=== PATIENT | female | born 1990 | race American Indian/Alaskan Native ===

== ENCOUNTER 2016-07-15 14:17 | Inpatient (IN) | payer MEDICAID ==
[2016-07-15] MEDS ORDERED: ePHEDrine SULFATE IV PRN ×2 (15:13→17:44)
[2016-07-15] MEDS ORDERED: BRETHINE SUB-Q PRN (15:13)
[2016-07-15] MEDS ORDERED: MINERAL OIL PO PRN (15:13)
[2016-07-15] MEDS ORDERED: ZOFRAN IV PRN (15:13)
[2016-07-15] MEDS ORDERED: SUBLIMAZE IV PRN (15:13)
[2016-07-15] MEDS ORDERED: PITOCin/NS 30 UNIT/500ML 30 UNIT/500 ML BAG IV SCH (16:00)
[2016-07-15] MEDS: LACTATED RINGERS 1,000 ML IV SCH ×3 (16:20→17:20)
[2016-07-15] MEDS ORDERED: ePHEDrine SULFATE ONE (16:59)
[2016-07-15] MEDS ORDERED: XYLOCAINE 2% INFILTRATI ONE (17:00)
[2016-07-15] MEDS ORDERED: PITOCin/NS 20 UNIT/1000ML DRIP 20 UNIT/1,000 ML BAG IV SCH (17:00)
--- NOTE | 2016-07-15 17:02 | History and Physical Report ---
History of Present Illness Date of examination: 07/15/16 (sent from office 6cm) Date of admission: 07/15/16 14:17 Chief complaint: labor History of present illness: EDC Confirmation: 07/24/2016 Gestational Age: 31 1/7 weeks Past History : 5 Term Births: 3 Living Children: 3 Para: 3 Aborta: 1 Elect. Ab: 0 Spont. Ab: 1 # 1 Delivery date: 11/11/2008 Weeks Gestation: 37 Delivery type: Delivery location: [place] Infant Sex: Female weight: 7-14 Name: Brendan # 2 Delivery date: 04/12/2011 Weeks Gestation: 37 Delivery type: Delivery location: [place] Sex: Female weight: 7-14 Name: Briana # 3 Delivery date: 10/2014 Weeks Gestation: term labor: no Delivery type: Delivery location: [facility] – [place] Sex: Male weight: 9#3 # 4 Delivery date: 05/2015 Delivery type: SAB Comments: SAB - did no seek medical care Past Medical History: Reviewed history from 09/05/2014 and no changes required: none Past Surgical History: Reviewed history from 09/05/2014 and no changes required: none Past Medical History Abnormal PAP: negative FLOYD Exposure: negative Infertility: negative Uterine Anomaly: negative Uterine Surgery (not C/S): negative Other Gynecologic Problems: negative Social Hx: Patient is single Smoking History: Patient has never smoked. Infection History Hx of STD: none HIV Risk Eval: no Hepatitis B Risk Eval: low risk Personal hx. of genital herpes: no Partner hx. of genital herpes: no Rash, Viral, or Febrile illness since last LMP? no Varicella/Chicken Pox Status: Unknown TB Risk: no Genetic History Congenital Heart Defect: Mom: no Dad: no Chente Disease: Mom: no Dad: no Thalassemia Mom: no Dad: no Neural Tube Defect Mom: no Dad: no Down's Syndrome Mom: no Dad: no Silas-Sachs Mom: no Dad: no Sickle Cell Disease/Trait Mom: no Dad: no Hemophilia Mom: no Dad: no Muscular Dystrophy Mom: no Dad: no Cystic Fibrosis Mom: no Dad: no David Chorea Mom: no Dad: no Mental Retardation Mom: no Dad: no Fragile X Mom: no Dad: no Other Genetic/Chromosomal Disorder Mom: no Dad: no Child w/other defect Mom: no Dad: no Enviromental Exposures Xray Exposure: no Medication, drug, or alcohol use since LMP: no Chemical/Other Exposure: no Exposure to Cat Liter: no Hx of Parvovirus (Fifth Disease): no Occupational Exposure to Children: none Current Allergies (reviewed today): No known allergies Laboratory Results Date/Time Collected: 05/23/2016 Routine Urinalysis Color: yellow Appearance: cloudy Leukocytes: negative Nitrite: negative Urobilinogen: negative Protein: negative Blood: negative Ketone: negative Bilirubin: negative Glucose: negative Urine HCG: positive Review of Systems General Denies fever, chills, sweats, anorexia, fatigue, weakness, malaise, weight loss and sleep disorder. Denies nausea, vomiting, headache, swelling of legs, abdominal pain, vaginal discharge, vaginal bleeding and contractions. Denies vaginal discharge, incontinence, dysuria, hematuria, urinary frequency, amenorrhea, menorrhagia, abnormal vaginal bleeding, pelvic pain, genital sores, decreased libido, painful periods, painful sex, urinary urgency, hot flashes, vaginal dryness, vaginal itching and vaginal odor. CV Denies chest pains, palpitations, syncope, dyspnea on exertion, orthopnea, PND and peripheral edema. Resp Denies cough, dyspnea at rest, excessive sputum, hemoptysis, wheezing and pleurisy. GI Denies nausea, vomiting, diarrhea, constipation, change in bowel habits, abdominal pain, melena, hematochezia, jaundice, gas/bloating, indigestion/ heartburn, dysphagia and odynophagia. Endo Denies cold intolerance, heat intolerance, polydipsia, polyphagia, polyuria and unusual weight change. Breast Denies left breast lump, right breast lump, nipple discharge, bloody discharge from nipple, breast pain, abnormal mammogram and breast enlargement. MS Denies back pain, joint pain, joint swelling, muscle cramps, muscle weakness, stiffness, arthritis, sciatica, restless legs, leg pain at night and leg pain with exertion. Derm Denies rash, itching, dryness and suspicious lesions. Neuro Denies paralysis, paresthesias, headache, seizures, tremors, vertigo, transient blindness, frequent falls, frequent headaches and difficulty walking. Psych Denies depression, anxiety, irritability and mood swings. Eyes Denies blurring, diplopia, irritation, discharge, vision loss, eye pain and photophobia. ENT Denies earache, ear discharge, tinnitus, decreased hearing, nasal congestion, nosebleeds, sore throat and hoarseness. Allergy Denies urticaria, allergic rash, hay fever and recurrent infections. Heme Denies abnormal bruising, bleeding and enlarged lymph nodes. 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 Vulva/Vagina: No lesions, normal BUS, normal rugae Cervix: No lesions; no cervical motion tenderness Uterus: normal size and position, midline, mobile Fundal Ht: 33weeks size: AGA FHT: 138 activity: + Adnexae: no masses or tenderness Rectovaginal: no masses or tenderness Past History - Obstetrical History Expected Date of Delivery: 07/24/16 Actual Gestation: 38 Week(s) 5 Day(s) : 5 Para: 3 Hx # Term Pregnancies: 3 Spontaneous Abortions: 1 Number of Living Children: 3 Medications and Allergies Allergies Allergy/AdvReac Type Severity Reaction Status Date / Time No Known Allergies Allergy Unverified 07/15/16 16:21 Home Medications Medication Instructions Recorded Confirmed Last Taken Type No Known Home Medications [No 07/15/16 07/15/16 Unknown History Reported Home Medications] Active Meds: Active Medications Fentanyl (Sublimaze) 100 mcg IV Q2H PRN PRN Reason: Labor Pain Lactated Ringer's (Lactated Ringers) 1,000 mls @ 125 mls/hr IV DIRECT DARLENE Oxytocin/Sodium Chloride (Pitocin/Ns 20 Unit/1000ml Drip) 20 unit in 1,000 mls @ 125 mls/hr IV DIRECT DARLENE Oxytocin/Sodium Chloride (Pitocin/Ns 30 Unit/500ml) 30 unit in 500 mls @ 0 mls/ hr IV Q30MIN DARLENE PRN Reason: Protocol Lidocaine (Xylocaine 2%) 20 ml INFILTRATI ONCE ONE Stop: 07/15/16 17:01 Mineral Oil (Mineral Oil) 30 ml PO QHS PRN PRN Reason: Constipation Ondansetron HCl (Zofran) 4 mg IV Q8H PRN PRN Reason: Nausea And Vomiting - Vital Signs Vital signs: Vital Signs Pulse BP 79 116/68 07/15/16 15:30 07/15/16 15:30 Temp Pulse Resp BP Pulse Ox 97.6 F 75 18 111/67 100 07/15/16 15:59 07/15/16 16:01 07/15/16 15:59 07/15/16 16:01 07/15/16 15:59 - Physical Exam Breasts: Positive: deferred Cardiovascular: Regular rate, Normal S1, Normal S2 Lungs: Positive: Clear to auscultation, Normal air movement Abdomen: Positive: normal appearance, soft, normal bowel sounds. Negative: distention, tenderness Genitourinary (Female): Positive: normal external genitalia, normal perenium Vulva: both: normal Vagina: Positive: normal moisture. Negative: discharge Cervix: Negative: lesion, discharge Uterus: Positive: normal size, normal contour Adnexa: both: normal Anus/Rectum: Positive: normal perianal skin, heme negative. Negative: rectal mass, hemorrhoids Extremities: Deep Tendon Reflex Grade: Normal +2 - Obstetrical FHR: category 1 Uterine Contraction Monitor Mode: External Cervical Dilatation: 6.5 Cervical Effacement Percentage: 50 station: -2 Uterine Contraction Pattern: Irregular Uterine Contraction Intensity: Moderate Results All other labs normal. Laboratory Data-Patient Name: TERI REED Test Date Result Blood Type 05/30/2016 AB Rh 05/30/2016 Positive Antibody Screen immune Rubella 05/30/2016 Serology (RPR) 06/25/2016 HBsAg 05/30/2016 Negative Hemoglobin 05/30/2016 9.2 Hematocrit 05/30/2016 30.3 Platelets 05/30/2016 273 [id number] Chlamydia DNA 06/25/2016 Negative GC DNA/Culture 06/25/2016 Urine Culture 05/30/2016 Final report Group B Strep cult negative PAP 09/05/2014 Normal HIV 06/25/2016 AFP/Quad Screen Glucola Test 3hr GTT (Fasting) 10/06/2014 59 1 hr 10/06/2014 79 2 hr 10/06/2014 116 3 hr 10/06/2014 104 OPTIONAL LABS-Patient Name:TERI REED Test Date Result Varicella Ab Sickle Cell 05/30/2016 Negative PPD Fibronectin Cystic Fibrosis Parvovirus TSH Free T4 Hepatitis C ALT AST Uric Acid Creatinine 24 hr Urine Protein NASH Assessment and Plan limited PNC SVE 6cm in office today GBS negative To [facility] in labor Orders in EMR
[2016-07-15 17:10] LABS: Hematocrit 28.1 % (30.3-42.9); Hemoglobin 8.6 gm/dl (10.1-14.3); Mean Corpuscular HGB Conc 31 % (30-34); Mean Corpuscular Volume 76 fl (79-97); Platelet Count 236 K/mm3 (140-440); Red Blood Count 3.72 M/mm3 (3.65-5.03); Red Cell Distribution Width 16.8 % (13.2-15.2); White Blood Count 8.3 K/mm3 (4.5-11.0)
[2016-07-15 17:11] LABS: Mean Corpuscular Hemoglobin 23 pg (28-32)
--- NOTE | 2016-07-15 17:29 | Progress Note ---
Assessment and Plan re-eval as needed Anticipate delivery Subjective - Subjective Date of service: 07/15/16 (epidural placed) Interval history: EDC Confirmation: 07/24/2016 Gestational Age: 31 1/7 weeks Past History : 5 Term Births: 3 Living Children: 3 Para: 3 Aborta: 1 Elect. Ab: 0 Spont. Ab: 1 # 1 Delivery date: 11/11/2008 Weeks Gestation: 37 Delivery type: Delivery location: [place] Sex: Female weight: 7-14 Name: Brendan # 2 Delivery date: 04/12/2011 Weeks Gestation: 37 Delivery type: Delivery location: [place] Infant Sex: Female weight: 7-14 Name: Briana # 3 Delivery date: 10/2014 Weeks Gestation: term labor: no Delivery type: Delivery location: [facility] [place] Infant Sex: Male weight: 9#3 # 4 Delivery date: 05/2015 Delivery type: SAB Comments: SAB - did no seek medical care Past Medical History: Reviewed history from 09/05/2014 and no changes required: none Past Surgical History: Reviewed history from 09/05/2014 and no changes required: none Past Medical History Abnormal PAP: negative FLOYD Exposure: negative Infertility: negative Uterine Anomaly: negative Uterine Surgery (not C/S): negative Other Gynecologic Problems: negative Social Hx: Patient is single Smoking History: Patient has never smoked. Infection History Hx of STD: none HIV Risk Eval: no Hepatitis B Risk Eval: low risk Personal hx. of genital herpes: no Partner hx. of genital herpes: no Rash, Viral, or Febrile illness since last LMP? no Varicella/Chicken Pox Status: Unknown TB Risk: no Genetic History Congenital Heart Defect: Mom: no Dad: no Chente Disease: Mom: no Dad: no Thalassemia Mom: no Dad: no Neural Tube Defect Mom: no Dad: no Down's Syndrome Mom: no Dad: no Silas-Sachs Mom: no Dad: no Sickle Cell Disease/Trait Mom: no Dad: no Hemophilia Mom: no Dad: no Muscular Dystrophy Mom: no Dad: no Cystic Fibrosis Mom: no Dad: no David Chorea Mom: no Dad: no Mental Retardation Mom: no Dad: no Fragile X Mom: no Dad: no Other Genetic/Chromosomal Disorder Mom: no Dad: no Child w/other defect Mom: no Dad: no Enviromental Exposures Xray Exposure: no Medication, drug, or alcohol use since LMP: no Chemical/Other Exposure: no Exposure to Cat Liter: no Hx of Parvovirus (Fifth Disease): no Occupational Exposure to Children: none Current Allergies (reviewed today): No known allergies Laboratory Results Date/Time Collected: 05/23/2016 Routine Urinalysis Color: yellow Appearance: cloudy Leukocytes: negative Nitrite: negative Urobilinogen: negative Protein: negative Blood: negative Ketone: negative Bilirubin: negative Glucose: negative Urine HCG: positive Review of Systems General Denies fever, chills, sweats, anorexia, fatigue, weakness, malaise, weight loss and sleep disorder. Denies nausea, vomiting, headache, swelling of legs, abdominal pain, vaginal discharge, vaginal bleeding and contractions. Denies vaginal discharge, incontinence, dysuria, hematuria, urinary frequency, amenorrhea, menorrhagia, abnormal vaginal bleeding, pelvic pain, genital sores, decreased libido, painful periods, painful sex, urinary urgency, hot flashes, vaginal dryness, vaginal itching and vaginal odor. CV Denies chest pains, palpitations, syncope, dyspnea on exertion, orthopnea, PND and peripheral edema. Resp Denies cough, dyspnea at rest, excessive sputum, hemoptysis, wheezing and pleurisy. GI Denies nausea, vomiting, diarrhea, constipation, change in bowel habits, abdominal pain, melena, hematochezia, jaundice, gas/bloating, indigestion/ heartburn, dysphagia and odynophagia. Endo Denies cold intolerance, heat intolerance, polydipsia, polyphagia, polyuria and unusual weight change. Breast Denies left breast lump, right breast lump, nipple discharge, bloody discharge from nipple, breast pain, abnormal mammogram and breast enlargement. MS Denies back pain, joint pain, joint swelling, muscle cramps, muscle weakness, stiffness, arthritis, sciatica, restless legs, leg pain at night and leg pain with exertion. Derm Denies rash, itching, dryness and suspicious lesions. Neuro Denies paralysis, paresthesias, headache, seizures, tremors, vertigo, transient blindness, frequent falls, frequent headaches and difficulty walking. Psych Denies depression, anxiety, irritability and mood swings. Eyes Denies blurring, diplopia, irritation, discharge, vision loss, eye pain and photophobia. ENT Denies earache, ear discharge, tinnitus, decreased hearing, nasal congestion, nosebleeds, sore throat and hoarseness. Allergy Denies urticaria, allergic rash, hay fever and recurrent infections. Heme Denies abnormal bruising, bleeding and enlarged lymph nodes. 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 Vulva/Vagina: No lesions, normal BUS, normal rugae Cervix: No lesions; no cervical motion tenderness Uterus: normal size and position, midline, mobile Fundal Ht: 33weeks size: AGA FHT: 138 activity: + Adnexae: no masses or tenderness Rectovaginal: no masses or tenderness Patient reports: movement normal Objective - Vital Signs Vital Signs: Vital Signs - 12hr 07/15/16 07/15/16 07/15/16 15:30 15:59 16:01 Temperature 97.6 F Pulse Rate 79 75 Pulse Rate [ 62 Radial] Respiratory 18 Rate Blood Pressure 116/68 111/67 Blood Pressure 118/68 [Right Arm] O2 Sat by Pulse 100 Oximetry 07/15/16 07/15/16 07/15/16 17:19 17:21 17:23 Temperature Pulse Rate 80 76 76 Pulse Rate [ Radial] Respiratory Rate Blood Pressure 117/79 118/75 118/73 Blood Pressure [Right Arm] O2 Sat by Pulse Oximetry 07/15/16 07/15/16 17:25 17:27 Temperature Pulse Rate 81 76 Pulse Rate [ Radial] Respiratory Rate Blood Pressure 116/72 115/71 Blood Pressure [Right Arm] O2 Sat by Pulse Oximetry - Exam Breasts: deferred Cardiovascular: Normal S1 Lungs: Normal air movement Abdomen: Present: normal appearance, soft. Absent: distention, tenderness Uterus: Present: normal FHR: auscultation normal, category 1 Uterine Contraction Monitor Mode: Internal Cervical Dilatation: 8 (ISE/IUPC) Cervical Effacement Percentage: 70 (minimal fluid) station: -1 Uterine Contraction Pattern: Irregular Uterine Tone Measurement Phase: Resting Uterine Contraction Intensity: Moderate Extremities: normal Deep Tendon Reflex Grade: Normal +2 - Labs Labs: Abnormal Labs 07/15/16 15:40 Hgb 8.6 L Hct 28.1 L MCV 76 L MCH 23 L RDW 16.8 H Laboratory Results - last 24 hr 07/15/16 15:40 WBC 8.3 RBC 3.72 Hgb 8.6 L Hct 28.1 L MCV 76 L MCH 23 L MCHC 31 RDW 16.8 H Plt Count 236
[2016-07-15] MEDS ORDERED: fentaNYL-BUPIV 2 MCG/ML-0.125% 200 MCG/100 ML BAG EPIDURAL ONE (17:36)
[2016-07-15] MEDS ORDERED: NARCAN 2 MG/2 ML IV PRN (17:44)
--- NOTE | 2016-07-15 17:44 | Anesthesia Consultation ---
Anesthesia Consult and Med Hx Date of service: 07/15/16 - Airway Anesthetic Teeth Evaluation: Good ROM Head & Neck: Adequate Mental/Hyoid Distance: Adequate Intubation Access Assessment: Probably Good - Pre-Operative Health Status ASA Pre-Surgery Classification: ASA2, Emergency Proposed Anesthetic Plan: Epidural, Spinal - Pulmonary Hx Asthma: No Hx Pneumonia: No - Cardiovascular System Hx Hypertension: No - Central Nervous System Hx Seizures: No Hx Psychiatric Problems: No - Endocrine Hx Renal Disease: No Hx Hypothyroidism: No Hx Hyperthyroidism: No - Hematic Hx Anemia: No Hx Sickle Cell Disease: No - Other Systems Hx Alcohol Use: No
[2016-07-15] MEDS ORDERED: fentaNYL-BUPIV 2 MCG/ML-0.125% 200 MCG/100 ML BAG EPIDURAL SCH (18:00)
[2016-07-15] MEDS ORDERED: XYLOCAINE MPF 2% ONE (19:23)
[2016-07-15] MEDS ORDERED: TYLENOL PO PRN (20:20)
[2016-07-15] MEDS ORDERED: TUCKS PAD TP PRN (20:20)
[2016-07-15] MEDS ORDERED: PHENERGAN PO PRN (20:20)
[2016-07-15] MEDS ORDERED: DULCOLAX PR PRN (20:20)
[2016-07-15] MEDS ORDERED: NORCO 5/325 PO PRN (20:20)
[2016-07-15] MEDS ORDERED: MILK OF MAGNESIA PO PRN (20:20)
[2016-07-15] MEDS ORDERED: LANSINOH TP PRN (20:20)
[2016-07-15] MEDS ORDERED: DERMOPLAST TP PRN (20:20)
[2016-07-15] MEDS ORDERED: BENADRYL PO PRN (20:20)
--- NOTE | 2016-07-15 20:26 | Procedure Note ---
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 Placenta and membrane delivered complete and intact, 3 vessel cord. Pit IVFs 8/9, EBL 300, Wgt 7-11 Mom and baby remain LDR stable. - Infant A at 1 minute: 8 at 5 minutes: 9 Gender: Female (wgt 7-11)
[2016-07-15] MEDS: MOTRIN PO SCH (20:50)
[2016-07-15] MEDS ORDERED: SODIUM CHLORIDE FLUSH SYRINGE 10 ML IV PRN (21:00)
[2016-07-15] MEDS ORDERED: MOTRIN PO SCH (21:00)
[2016-07-16] MEDS: MOTRIN PO SCH ×3 (05:40→21:46)
[2016-07-16 06:25] LABS: Hematocrit 25.5 % (30.3-42.9); Hemoglobin 7.9 gm/dl (10.1-14.3)
--- NOTE | 2016-07-16 08:22 | Progress Note ---
Assessment and Plan patient doing well, no complaints. polly smith, VSSAF, H&H 7.9/25.5 (post delivery H&H down slightly from admission of 8.6/28.1 ) preexisting anemia, will supplement iron. patient is well. Patient requesting to stay until tomorrow morning. Will place d/c order on chart for tomorrow. - Patient Problems (1) Spontaneous vaginal delivery Onset Date: 07/15/16 Current Visit: Yes Status: Acute (2) Iron deficiency anemia Current Visit: Yes Status: Acute Qualifiers: Iron deficiency anemia type: inadequate dietary iron intake Qualified Code( s): D50.8 - Other iron deficiency anemias Plan to address problem: asymptomatic, will rx iron Subjective - Subjective Date of service: 07/16/16 Principal diagnosis: day #1 s/p Patient reports: appetite normal, voiding normally, pain well controlled, ambulating normally : doing well, nursing well Objective - Vital Signs Latest vital signs: Vital Signs Temp Pulse Pulse Resp BP BP Pulse Ox 07/16/16 05:05 97.5 F L 67 18 115/65 07/16/16 00:00 98.2 F 81 20 120/66 07/15/16 21:15 97.9 F 76 18 126/70 07/15/16 20:51 77 129/78 07/15/16 20:36 77 130/61 07/15/16 20:20 78 127/80 07/15/16 20:05 87 126/72 07/15/16 19:51 82 118/69 07/15/16 19:34 83 121/57 07/15/16 19:04 80 120/70 07/15/16 19:01 97.5 F L 196 H 226/136 07/15/16 17:44 18 07/15/16 17:33 94 H 108/58 07/15/16 17:31 84 107/59 07/15/16 17:29 73 111/64 07/15/16 17:27 76 115/71 07/15/16 17:25 81 116/72 07/15/16 17:23 76 118/73 07/15/16 17:21 76 118/75 07/15/16 17:19 80 117/79 07/15/16 16:01 75 111/67 07/15/16 15:59 97.6 F 62 18 118/68 100 07/15/16 15:30 79 116/68 Intake and Output 07/15/16 07/16/16 07/16/16 22:59 06:59 14:59 Intake Total 1570 1275 Output Total 900 2100 Balance 670 -825 Intake: IV 1570 435 Lactated Ringers 1,000 ml 500 @ 125 mls/hr IV DIRECT DARLENE Rx#:[id number] PITOCin/NS 20 UNIT/1000ML 570 435 DRIP 20 unit In 1,000 ml @ 125 mls/hr IV DIRECT DARLENE Rx#:[id number] PITOCin/NS 30 UNIT/500ML 500 30 unit In 500 ml @ 4 mls /hr IV Q30MIN DARLENE Rx#: [id number] Intake, Free Water 840 Output: Urine 900 2100 Void 900 2100 Other: Total, Output Amount 900 700 # Voids Void 1 Weight 95.25 kg Estimated Blood Loss 300 - Exam Breasts: Present: normal, Cardiovascular: Present: Regular rate Lungs: Present: Clear to auscultation, Normal air movement Abdomen: Present: normal appearance, soft Vulva: both: normal Uterus: Present: normal, firm, fundal height at umbilicus Extremities: Present: normal - Labs Labs: Abnormal lab results 07/15/16 07/16/16 Range/Units 15:40 06:11 Hgb 8.6 L 7.9 L (10.1-14.3) gm/dl Hct 28.1 L 25.5 L (30.3-42.9) % MCV 76 L (79-97) fl MCH 23 L (28-32) pg RDW 16.8 H (13.2-15.2) %
--- NOTE | 2016-07-16 08:24 | Discharge Summary ---
Providers - Providers Date of Admission: 07/15/16 14:17 Date of discharge: 07/17/16 Attending physician: ALESSANDRO LEDBETTER Primary care physician: ALESSANDRO LEDBETTER Hospitalization Reason for admission: active labor Delivery: Episiotomy: none Laceration: none Other procedures: none complications: none Discharge diagnosis: IUP at term delivered baby: female Hospital course: uncomplicated vaginal delivery Condition at discharge: Good Disposition: DISCHARGED TO HOME OR SELFCARE - Discharge Diagnoses (1) Spontaneous vaginal delivery Status: Acute (2) Iron deficiency anemia Status: Acute Qualifiers: Iron deficiency anemia type: inadequate dietary iron intake Qualified Code( s): D50.8 - Other iron deficiency anemias Plan - Provider Discharge Summary Activity: routine, no sex for 6 weeks, no heavy lifting 4 weeks, no strenuous exercise Diet: routine Instructions: routine Additional instructions: [] Smoking cessation referral if applicable(refer to patient education folder for contact #) [] Refer to [facility] Booklet Call your doctor immediately for: * Fever > 100.5 * Heavy vaginal bleeding ( >1 pad per hour) * Severe persistent headache * Shortness of breath * Reddened, hot, painful area to leg or breast * Drainage or odor from incision. * Keep incision clean and dry at all times and follow doctor's instructions regarding bathing/showering - Follow up plan Follow up: ALESSANDRO LEDBETTER MD [Primary Care Provider] - 08/13/16 (Congratulations! Please call [phone] to schedule your visit in 4 weeks. It is very important to keep this appointment so we can schedule your tubal ligation. Call for any questions or concerns.)
[2016-07-16] MEDS ORDERED: FLUARIX QUAD 2016-2017(36 MOS+) IM ONE (09:00)
[2016-07-16] MEDS: COLACE PO SCH ×2 (10:57→21:46)
[2016-07-16] MEDS: FEOSOL PO SCH ×2 (10:58→21:46)
--- NOTE | 2016-07-16 12:54 | Progress Note ---
Subjective Date of service: 07/16/16 Principal diagnosis: day #1 s/p Interval history: 1st day after normal vaginal delivery Patient is in the bed, comfortable. Pain is controlled with pain meds. Ambulated well. No residual neurological deficit. No anesthesia complications Objective - Constitutional Vitals: Vital Signs - 12hr 07/16/16 07/16/16 05:05 08:58 Temperature 97.5 F L 98 F Pulse Rate [ 67 78 Radial] Respiratory 18 20 Rate Blood Pressure 115/65 119/72 [Right Arm] - Labs CBC & Chem 7: 07/16/16 06:11 Labs: Abnormal lab results 07/15/16 07/16/16 Range/Units 15:40 06:11 Hgb 8.6 L 7.9 L (10.1-14.3) gm/dl Hct 28.1 L 25.5 L (30.3-42.9) % MCV 76 L (79-97) fl MCH 23 L (28-32) pg RDW 16.8 H (13.2-15.2) %
[2016-07-16] MEDS ORDERED: M-M-R II VACCINE SUB-Q ONE (20:20)
[2016-07-17] MEDS: MOTRIN PO SCH (05:58)
[2016-07-17] MEDS ORDERED: BOOSTRIX IM ONE (06:00)
[2016-07-17] MEDS: FEOSOL PO SCH (09:58)
[2016-07-17] MEDS: COLACE PO SCH (09:58)
[2016-07-17 11:29] VITALS: BP 120/68
== END 2016-07-17 10:50 | disposition home or self-care (01) | DRG 775 ==
LOC: LD 14:17 → OB 21:17
PROVIDERS: ADMIT Obstetrics & Gynecology; ATTEND Obstetrics & Gynecology
PROC: 10E0XZZ Delivery of Products of Conception, External Approach (ICD-10-PCS; principal; 2016-07-15)
PROC: 00HU33Z Insertion of Infusion Device into Spinal Canal, Percutaneous Approach (ICD-10-PCS; 2016-07-15)
PROC: 3E0R3CZ (ICD-10-PCS; 2016-07-15)
DX: O99.013 Anemia complicating pregnancy, third trimester (principal); D50.9 Iron deficiency anemia, unspecified; Z37.0 Single live birth; Z3A.31 31 weeks gestation of pregnancy
CPT/HCPCS: 36415; 85014; 85018; 85027; 86592; 86850; 86900; 86901; 90686; 90715; J2590; J3010; J7120

== ENCOUNTER 2016-09-02 11:46 | Day surgery (SDC) | payer MEDICAID ==
--- NOTE | 2016-08-28 12:28 | Short Stay Summary ---
Short Stay Documentation Date of service: 09/02/16 Narrative H&P: 25 yo [id number] who desires elective sterilization is admitted for laparoscopic BTL. She understands risks of procedure, failure rate and permanence of procedure and has previously signed a written consent in the office. Her last delivery was 07/15/16. Patient seen and examined day of surgery with no changes noted. - History Principal diagnosis: elective sterilization Past Medical History: No medical history Past Surgical History: No surgical history Social history: no significant social history - Allergies and Medications Current Medications: Allergies No Known Allergies Allergy (Unverified 07/15/16 16:21) Home Medications Medication Instructions Recorded Confirmed Last Taken Type Docusate Sodium [Colace] 100 mg PO BID PRN #60 capsule 07/16/16 Unknown Rx Ferrous Sulfate [Feosol 325 MG tab] 325 mg PO TID #90 tablet 07/16/16 Unknown Rx Ibuprofen [Motrin 800 MG tab] 800 mg PO Q8HR PRN #30 tablet 07/16/16 Unknown Rx Active Medications Lactated Ringer's (Lactated Ringers) 1,000 mls @ 125 mls/hr IV DIRECT DARLENE - Physical exam General appearance: no acute distress, well-nourished Integumentary: no rash HEENT: Atraumatic, PERRLA, Mucous membr. moist/pink Lungs: Clear to auscultation, Normal air movement Breasts: deferred Heart: Regular rate, No murmurs Gastrointestinal: normal, no tenderness Female Genitourinary: normal Rectal Exam: deferred Extremities: no ischemia, No edema, normal temperature, normal color, Full ROM Neurological: Normal gait, Normal speech, Cranial nerves 3-12 NL - Brief post op/procedure progress note Date of procedure: 09/02/16 Pre-op diagnosis: elective sterilization Procedure: Laparoscopic Bilateral tubal ligation by tubal fulguration Anesthesia: GETA Findings: Normal tubes, uterus and ovaries, normal upper abdomen Surgeon: TJ KELLY Estimated blood loss: minimal Pathology: none Condition: stable - Hospital course Hospital course: Patient had a normal post anesthesia care unit course is discharged home in good condition with instructions for pelvic rest and use pain medications as needed. - Disposition Condition at discharge: Good Disposition: DISCHARGED TO HOME OR SELFCARE - Discharge Diagnoses (1) Sterilization Status: Acute Short Stay Discharge Plan Activity: advance as tolerated (no driving if taking narcotics) Weight Bearing Status: Full Weight Bearing Diet: regular Follow up with: ALESSANDRO LEDBETTER MD [Primary Care Provider] - 7 Days
[~2016-09-02 11:46] MED LIST: LACTATED RINGERS 1,000 ML IV SCH
[2016-09-02] MEDS ORDERED: DILAUDID IV PRN (12:20)
[2016-09-02] MEDS ORDERED: SUBLIMAZE IV PRN (12:20)
[2016-09-02] MEDS ORDERED: ZOFRAN IV PRN (12:20)
[2016-09-02] MEDS ORDERED: NACL BACTERIOSTATIC INFILTRATI ONE (12:21)
--- NOTE | 2016-09-02 12:21 | Anesthesia Day of Surgery ---
Anesthesia Day of Surgery - Day of Surgery Patient Examined: Yes Patient H&P Reviewed: Yes Patient is NPO: Yes Beta Blockers: No Cardiac Clearance: No Pulmonary Clearance: No
--- NOTE | 2016-09-02 12:22 | Anesthesia Consultation ---
Anesthesia Consult and Med Hx Date of service: 09/02/16 - Airway Anesthetic Teeth Evaluation: Good (some chipped) ROM Head & Neck: Adequate Mental/Hyoid Distance: Adequate Mallampati Class: Class II Intubation Access Assessment: Probably Good - Pulmonary Exam CTA: Yes (clear blbs) - Cardiac Exam Cardiac Exam: RRR - Pre-Operative Health Status ASA Pre-Surgery Classification: ASA2 Proposed Anesthetic Plan: General (post 4 weeks/no ) - Pulmonary Hx Asthma: No Hx Pneumonia: No - Cardiovascular System Hx Hypertension: No - Central Nervous System Hx Seizures: No Hx Psychiatric Problems: No - Endocrine Hx Renal Disease: No Hx Hypothyroidism: No Hx Hyperthyroidism: No - Hematic Hx Anemia: No Hx Sickle Cell Disease: No - Other Systems Hx Alcohol Use: No Hx Cancer: No
[2016-09-02 12:46] LABS: Hematocrit 34.3 % (30.3-42.9); Hemoglobin 10.8 gm/dl (10.1-14.3); Mean Corpuscular HGB Conc 32 % (30-34); Mean Corpuscular Volume 76 fl (79-97); Platelet Count 229 K/mm3 (140-440); Red Blood Count 4.52 M/mm3 (3.65-5.03); Red Cell Distribution Width 19.3 % (13.2-15.2)
[2016-09-02 12:48] LABS: Mean Corpuscular Hemoglobin 24 pg (28-32)
[2016-09-02] MEDS ORDERED: VERSED IV NR (13:00)
[2016-09-02] MEDS ORDERED: PEPCID PO NR (13:00)
[2016-09-02] MEDS ORDERED: SUBLIMAZE ONE (13:07)
[2016-09-02] MEDS ORDERED: DIPRIVAN 10 MG/ML IV ONE (13:07)
[2016-09-02] MEDS ORDERED: VERSED ONE (13:37)
[2016-09-02] MEDS ORDERED: QUELICIN ONE (14:02)
[2016-09-02] MEDS ORDERED: DECADRON ONE (14:02)
[2016-09-02] MEDS ORDERED: XYLOCAINE MPF 2% ONE (14:02)
[2016-09-02] MEDS ORDERED: ZOFRAN ONE (14:02)
[2016-09-02] MEDS ORDERED: ROBINUL ONE (14:02)
[2016-09-02] MEDS ORDERED: ZEMURON IV ONE (14:02)
[2016-09-02] MEDS ORDERED: BLOXIVERZ ONE (14:02)
[2016-09-02] MEDS ORDERED: LACTATED RINGERS 1,000 ML ONE (14:21)
[2016-09-02] MEDS ORDERED: MARCAINE 0.5% INFILTRATI ONE (14:22)
[2016-09-02] MEDS ORDERED: NACL 0.9% IR ONE (14:23)
[2016-09-02 14:26] LABS: Alanine Aminotransferase 22 units/L (7-56); Albumin 3.6 g/dL (3.9-5); Albumin/Globulin Ratio 0.9 %; Alkaline Phosphatase 51 units/L (35-129); Anion Gap 18 mmol/L; BUN/Creatinine Ratio 7.14; Bilirubin,Total 0.5 mg/dL (0.1-1.2); Blood Urea Nitrogen 5 mg/dL (7-17); Carbon Dioxide 22 mmol/L (22-30); Chloride 103.9 mmol/L (98-107); Glucose 93 mg/dL (65-100); Potassium 3.6 mmol/L (3.6-5.0); Sodium 140 mmol/L (137-145); Total Protein 7.4 g/dL (6.3-8.2)
--- NOTE | 2016-09-02 14:51 | Operative Report ---
Operative Report Operative Report: Date of procedure: 09/02/2016 Pre-operative diagnosis: Elective sterilization Post-operative diagnosis: Same and normal tubes, uterus and ovaries. Normal inspection of the upper abdomen. Procedure name(s): Bilateral tubal ligation by tubal fulguration Surgeon: Jenn Freeman M.D. Galley Cook: TREVA Anesthesia: Gen. endotracheal anesthesia Findings: Normal tubes, uterus and ovaries EBL: Less than 5 mL Procedure in detail: Patient was taken to the operating room and placed in the supine position. After adequate general endotracheal anesthesia was achieved, she was prepped and draped in the usual fashion for laparoscopy. Surgical timeout was taken with all members of the OR team attentive. I double gloved and then placed a Fields catheter in a sterile fashion. A speculum was used to expose the cervix and this was grasped with a single-tooth tenaculum. A HUMI manipulator was placed in this without difficulty and required 40 mL of air to distend the balloon adequately. The speculum and the tenaculum were then removed. Gloves were changed and attention was turned to the upper abdomen. A vertical incision was made in the inferior half of the umbilicus and a series needle was inserted through this and the abdomen was insufflated with about 3 L of carbon dioxide varies needle was removed and a Visiport 5 mm trocar was placed through the same incision without difficulty and intra-abdominal placement was achieved without incident. There were no obvious abnormalities of the upper abdomen was adequately visualized. There were no adhesions and all the pelvic organs were completely within normal limits. A second 5 mm trocar was placed in the midline in the suprapubic region. In turn, each fallopian tube was grasped with a Kleppinger surgical bipolar forceps and was coagulated down to 0 resistance in at least 3 places. Same procedure was carried out on the other tube. There was no bleeding noted from either trocar so the procedure was terminated and both trochars were removed. The incisions were both closed with single inverted subcuticular sutures of 3-0 Vicryl. Instruments were removed from the vagina. The patient was then awakened by anesthesia and discharged to recovery room in good condition.
[2016-09-02 16:18] VITALS: BP 144/92
== END 2016-09-02 16:35 | disposition home or self-care (01) ==
LOC: OR 11:46
PROVIDERS: ATTEND Obstetrics & Gynecology
DX: Z30.2 Encounter for sterilization (principal); D50.9 Iron deficiency anemia, unspecified
CPT/HCPCS: 36415; 58670; 80053; 81025; 85027; 86850; 86900; 86901; J0330; J1100; J2250; J2405; J2704; J2710; J3010; J7120

== ENCOUNTER 2018-12-28 08:55 | Emergency (ER) | payer MEDICAID ==
[2018-12-28 09:02] VITALS: BP 124/76
[2018-12-28] MEDS ORDERED: ZOFRAN IV ONE (10:11)
[2018-12-28] MEDS ORDERED: NACL 0.9% 1000 ML 1,000 ML IV ONE (10:11)
--- NOTE | 2018-12-28 10:12 | Emergency Department Report ---
ED General Adult HPI - General Chief complaint: Nausea/Vomiting/Diarrhea Stated complaint: VOMIT EXCESSIVE Time Seen by Provider: 12/28/18 09:49 Source: patient Mode of arrival: Ambulatory Limitations: No Limitations - History of Present Illness Initial comments: The patient presents to the emergency department with a chief complaint nausea, vomiting, diarrhea that started this morning. Patient states she's had 4-5 episodes of vomiting this morning. Patient denies any sick contacts. Patient denies abdominal pain, shortness breath, chest pain. -: Sudden Severity scale (0 -10): 0 Improves with: none Worsens with: none Associated Symptoms: denies other symptoms Treatments Prior to Arrival: none - Related Data Previous Rx's Medication Instructions Recorded Last Taken Type HYDROcodone/APAP 5-325 [[place] 1 each PO Q6HR PRN #20 tablet 09/02/16 Unknown Rx 5/325] Ibuprofen [Motrin 800 MG tab] 800 mg PO Q8HR PRN #30 tablet 09/02/16 Unknown Rx Ondansetron [Zofran Odt] 4 mg PO Q4HR PRN #20 tab.rapdis 12/28/18 Unknown Rx Promethazine [Phenergan TAB] 25 mg PO Q6HR PRN #20 tab 12/28/18 Unknown Rx Allergies Allergy/AdvReac Type Severity Reaction Status Date / Time No Known Allergies Allergy Unverified 08/30/16 13:30 ED Review of Systems ROS: Stated complaint: VOMIT EXCESSIVE Other details as noted in HPI Comment: All other systems reviewed and negative Constitutional: denies: chills, fever Eyes: denies: eye pain, eye discharge, vision change ENT: denies: ear pain, throat pain Respiratory: denies: cough, shortness of breath, wheezing Cardiovascular: denies: chest pain, palpitations Endocrine: no symptoms reported Gastrointestinal: nausea, vomiting. denies: abdominal pain, diarrhea Genitourinary: denies: urgency, dysuria, discharge Musculoskeletal: denies: back pain, joint swelling, arthralgia Skin: denies: rash, lesions Neurological: denies: headache, weakness, paresthesias Psychiatric: denies: anxiety, depression Hematological/Lymphatic: denies: easy bleeding, easy bruising ED Past Medical Hx - Past Medical History Previous Medical History?: No Hx Hypertension: No Hx Diabetes: No Hx Deep Vein Thrombosis: No Hx Renal Disease: No Hx Sickle Cell Disease: No Hx Seizures: No Hx Asthma: No Hx HIV: No - Surgical History Past Surgical History?: No - Social History Smoking Status: Never Smoker - Medications Home Medications: Home Medications Medication Instructions Recorded Confirmed Last Taken Type HYDROcodone/APAP 5-325 [[place] 1 each PO Q6HR PRN #20 tablet 09/02/16 Unknown Rx 5/325] Ibuprofen [Motrin 800 MG tab] 800 mg PO Q8HR PRN #30 tablet 09/02/16 Unknown Rx Ondansetron [Zofran Odt] 4 mg PO Q4HR PRN #20 tab.rapdis 12/28/18 Unknown Rx Promethazine [Phenergan TAB] 25 mg PO Q6HR PRN #20 tab 12/28/18 Unknown Rx ED Physical Exam - General Limitations: No Limitations General appearance: alert, in no apparent distress - Head Head exam: Present: atraumatic, normocephalic - Eye Eye exam: Present: normal appearance - ENT ENT exam: Present: mucous membranes dry - Neck Neck exam: Present: normal inspection - Respiratory Respiratory exam: Present: normal lung sounds bilaterally. Absent: respiratory distress - Cardiovascular Cardiovascular Exam: Present: regular rate, normal rhythm. Absent: systolic murmur, diastolic murmur, rubs, gallop - GI/Abdominal GI/Abdominal exam: Present: soft, normal bowel sounds - Extremities Exam Extremities exam: Present: normal inspection - Back Exam Back exam: Present: normal inspection - Neurological Exam Neurological exam: Present: alert, oriented X3, CN II-XII intact. Absent: motor sensory deficit - Psychiatric Psychiatric exam: Present: normal affect, normal mood - Skin Skin exam: Present: warm, dry, intact, normal color. Absent: rash ED Course Vital Signs 12/28/18 08:56 Temperature 98.3 F Pulse Rate 66 Respiratory 16 Rate Blood Pressure 124/76 [Left] O2 Sat by Pulse 100 Oximetry ED Medical Decision Making - Lab Data Result diagrams: 12/28/18 10:19 12/28/18 10:19 Lab Results 12/28/18 12/28/18 12/28/18 Range/Units 10:00 10:19 10:19 WBC 6.1 (4.5-11.0) K/mm3 RBC 4.07 (3.65-5.03) M/mm3 Hgb 11.4 (10.1-14.3) gm/dl Hct 35.2 (30.3-42.9) % MCV 87 (79-97) fl MCH 28 (28-32) pg MCHC 32 (30-34) % RDW 12.6 L (13.2-15.2) % Plt Count 244 (140-440) K/mm3 Lymph % (Auto) 37.8 H (13.4-35.0) % [place] % (Auto) 7.4 H (0.0-7.3) % Eos % (Auto) 1.6 (0.0-4.3) % Baso % (Auto) 1.2 (0.0-1.8) % Lymph # 2.3 (1.2-5.4) K/mm3 [place] # 0.4 (0.0-0.8) K/mm3 Eos # 0.1 (0.0-0.4) K/mm3 Baso # 0.1 (0.0-0.1) K/mm3 Seg Neutrophils % 52.0 (40.0-70.0) % Seg Neutrophils # 3.2 (1.8-7.7) K/mm3 Sodium 139 (137-145) mmol/L Potassium 4.0 (3.6-5.0) mmol/L Chloride 104.2 (98-107) mmol/L Carbon Dioxide 24 (22-30) mmol/L Anion Gap 15 mmol/L BUN 7 (7-17) mg/dL Creatinine 0.8 (0.7-1.2) mg/dL Estimated GFR > 60 ml/min BUN/Creatinine Ratio 9 % Glucose 96 (65-100) mg/dL Calcium 9.0 (8.4-10.2) mg/dL Urine Color Yellow (Yellow) Urine Turbidity Slightly-cloudy (Clear) Urine pH 7.0 (5.0-7.0) Ur Specific [place] 1.006 (1.003-1.030) Urine Protein <15 mg/dl (Negative) mg/dL Urine Glucose (UA) Neg (Negative) mg/dL Urine Ketones Neg (Negative) mg/dL Urine Blood Neg (Negative) Urine Nitrite Neg (Negative) Ur Reducing Substances Not Reportable Urine Bilirubin Neg (Negative) Urine Ictotest Not Reportable Urine Urobilinogen < 2.0 (<2.0) mg/dL Ur Leukocyte Esterase Tr (Negative) Urine WBC (Auto) 2.0 (0.0-6.0) /HPF Urine RBC (Auto) 3.0 (0.0-6.0) /HPF U Epithel Cells (Auto) 23.0 H (0-13.0) /HPF Urine Bacteria (Auto) 1+ (Negative) /HPF Urine HCG, Qual Negative (Negative) Critical care attestation.: If time is entered above; I have spent that time in minutes in the direct care of this critically ill patient, excluding procedure time. ED Disposition Clinical Impression: Nausea & vomiting, Diarrhea Disposition: TO HOME OR SELFCARE Is pt being admited?: No Does the pt Need Aspirin: No Condition: Stable Instructions: Acute Nausea and Vomiting (ED), Acute Diarrhea (ED) Additional Instructions: return if worse Referrals: PRIMARY CARE,MD [Primary Care Provider] - 3-5 Days [facility] [Provider Group] - 3-5 Days [facility] [Provider Group] - 3-5 Days Time of Disposition: 11:27
[2018-12-28 10:38] LABS: Basophils # (Auto) 0.1 K/mm3 (0.0-0.1); Basophils % (Auto) 1.2 % (0.0-1.8); Eosinophils # (Auto) 0.1 K/mm3 (0.0-0.4); Eosinophils % (Auto) 1.6 % (0.0-4.3); Hematocrit 35.2 % (30.3-42.9); Hemoglobin 11.4 gm/dl (10.1-14.3); Lymphocytes # (Auto) 2.3 K/mm3 (1.2-5.4); Lymphocytes % (Auto) 37.8 % (13.4-35.0); Mean Corpuscular HGB Conc 32 % (30-34); Mean Corpuscular Volume 87 fl (79-97); Monocytes # (Auto) 0.4 K/mm3 (0.0-0.8); Monocytes % (Auto) 7.4 % (0.0-7.3); Platelet Count 244 K/mm3 (140-440); Red Blood Count 4.07 M/mm3 (3.65-5.03); Red Cell Distribution Width 12.6 % (13.2-15.2)
[2018-12-28 10:59] LABS: BUN/Creatinine Ratio 9; Blood Urea Nitrogen 7 mg/dL (7-17); Hemolysis Index 16
[2018-12-28 11:03] LABS: Bacteria,Urine 1+ /HPF (Negative); Bilirubin,Urine NEG (Negative); Blood,Urine NEG (Negative); Color,Urine Yellow (Yellow); Protein,Urine <15 mg/dL mg/dL (Negative); Urobilinogen,Urine < 2.0 mg/dL (<2.0)
[2018-12-28 11:05] LABS: HCG Qualitative,Urine Negative (Negative)
== END 2018-12-28 12:03 | disposition home or self-care (01) ==
LOC: ED 08:55
DX: R11.2 Nausea with vomiting, unspecified (principal); R19.7 Diarrhea, unspecified; Z79.899 Other long term (current) drug therapy
CPT/HCPCS: 36415; 80048; 81001; 81025; 85025; 96361; 96374; 99283; J2405; J7030

== ENCOUNTER 2019-02-07 22:07 | Emergency (ER) | payer OTHER ==
[2019-02-07 23:14] LABS: Bilirubin,Urine NEG (Negative); Blood,Urine NEG (Negative); Color,Urine Yellow (Yellow); Mucus,Urine FEW /HPF; Protein,Urine <15 mg/dL mg/dL (Negative)
[2019-02-07 23:21] LABS: HCG Qualitative,Urine Negative (Negative)
--- NOTE | 2019-02-08 01:09 | Emergency Department Report ---
ED Female HPI - General Chief complaint: Abdominal Pain Stated complaint: LOWER ABD PAIN Time Seen by Provider: 02/07/19 23:40 Source: patient Mode of arrival: Ambulatory Limitations: No Limitations - History of Present Illness Initial comments: Patient is a 28-year-old female with no stomach and past medical history who is presenting with some lower abdominal discomfort. Patient states the symptoms started earlier today. Patient states she has noticed a vaginal discharge last several days. Patient states the lower abdominal s uprapubic discomfort is crampy in nature. Patient has no dysuria or abnormal vaginal bleeding. She denies nausea vomiting diarrhea fevers or chills. - Related Data Previous Rx's Medication Instructions Recorded Last Taken Type HYDROcodone/APAP 5-325 [[place] 1 each PO Q6HR PRN #20 tablet 09/02/16 Unknown Rx 5/325] Ibuprofen [Motrin 800 MG tab] 800 mg PO Q8HR PRN #30 tablet 09/02/16 Unknown Rx Ondansetron [Zofran Odt] 4 mg PO Q4HR PRN #20 tab.rapdis 12/28/18 Unknown Rx Promethazine [Phenergan TAB] 25 mg PO Q6HR PRN #20 tab 12/28/18 Unknown Rx Ibuprofen [Motrin 800 MG tab] 800 mg PO Q8HR PRN #10 tablet 02/08/19 Unknown Rx metroNIDAZOLE [Flagyl] 500 mg PO Q12HR #14 tab 02/08/19 Unknown Rx Allergies Allergy/AdvReac Type Severity Reaction Status Date / Time No Known Allergies Allergy Verified 02/07/19 22:09 ED Review of Systems ROS: Stated complaint: LOWER ABD PAIN Other details as noted in HPI Comment: All other systems reviewed and negative ED Past Medical Hx - Past Medical History Previous Medical History?: No Hx Hypertension: No Hx Diabetes: No Hx Deep Vein Thrombosis: No Hx Renal Disease: No Hx Sickle Cell Disease: No Hx Seizures: No Hx Asthma: No Hx HIV: No - Social History Smoking Status: Never Smoker Substance Use Type: None - Medications Home Medications: Home Medications Medication Instructions Recorded Confirmed Last Taken Type HYDROcodone/APAP 5-325 [[place] 1 each PO Q6HR PRN #20 tablet 09/02/16 Unknown Rx 5/325] Ibuprofen [Motrin 800 MG tab] 800 mg PO Q8HR PRN #30 tablet 03/27/17 Unknown Rx Ondansetron [Zofran Odt] 4 mg PO Q4HR PRN #20 tab.rapdis 12/28/18 Unknown Rx Promethazine [Phenergan TAB] 25 mg PO Q6HR PRN #20 tab 12/28/18 Unknown Rx Ibuprofen [Motrin 800 MG tab] 800 mg PO Q8HR PRN #10 tablet 02/08/19 Unknown Rx metroNIDAZOLE [Flagyl] 500 mg PO Q12HR #14 tab 02/08/19 Unknown Rx ED Physical Exam - General Limitations: No Limitations General appearance: alert, in no apparent distress - Head Head exam: Present: atraumatic, normocephalic - Eye Eye exam: Present: normal appearance - ENT ENT exam: Present: normal orophraynx, mucous membranes moist - Neck Neck exam: Present: normal inspection - Respiratory Respiratory exam: Present: normal lung sounds bilaterally. Absent: respiratory distress, wheezes, rales, rhonchi - Cardiovascular Cardiovascular Exam: Present: regular rate, normal rhythm. Absent: systolic murmur, diastolic murmur, rubs, gallop - GI/Abdominal GI/Abdominal exam: Present: soft, tenderness (suprapubic, mild), normal bowel sounds. Absent: distended, guarding, rebound - External exam: Present: normal external exam Speculum exam: Present: vaginal discharge Bi-manual exam: Absent: normal bi-manual exam, cervical motion tendernes, adnexal tenderness - Extremities Exam Extremities exam: Present: normal inspection - Back Exam Back exam: Present: normal inspection - Neurological Exam Neurological exam: Present: alert, oriented X3 - Psychiatric Psychiatric exam: Present: normal affect, normal mood - Skin Skin exam: Present: warm, dry, intact, normal color. Absent: rash ED Course Vital Signs 02/07/19 02/08/19 02/08/19 22:36 00:35 00:41 Temperature 98.0 F Pulse Rate 81 56 L Respiratory 16 18 16 Rate Blood Pressure 112/74 Blood Pressure 106/63 [Left] O2 Sat by Pulse 98 100 98 Oximetry ED Medical Decision Making - Lab Data Lab Results 02/07/19 Range/Units 22:55 Urine Color Yellow (Yellow) Urine Turbidity Slightly-cloudy (Clear) Urine pH 6.0 (5.0-7.0) Ur Specific [place] 1.026 (1.003-1.030) Urine Protein <15 mg/dl (Negative) mg/dL Urine Glucose (UA) Neg (Negative) mg/dL Urine Ketones Neg (Negative) mg/dL Urine Blood Neg (Negative) Urine Nitrite Neg (Negative) Urine Bilirubin Neg (Negative) Urine Urobilinogen 4.0 (<2.0) mg/dL Ur Leukocyte Esterase Neg (Negative) Urine WBC (Auto) 2.0 (0.0-6.0) /HPF Urine RBC (Auto) 1.0 (0.0-6.0) /HPF U Epithel Cells (Auto) 7.0 (0-13.0) /HPF Urine Mucus Few /HPF Urine HCG, Qual Negative (Negative) - Medical Decision Making Wet prep shows the patient has clue cells present but is negative for bacteria or Trichomonas and yeast. Patient will be treated for bacterial vaginosis be discharged home. Critical care attestation.: If time is entered above; I have spent that time in minutes in the direct care of this critically ill patient, excluding procedure time. ED Disposition Clinical Impression: Bacterial vaginosis Disposition: DC-01 TO HOME OR SELFCARE Is pt being admited?: No Does the pt Need Aspirin: No Condition: Stable Instructions: Abdominal Pain (ED), Bacterial Vaginosis (ED) Referrals: PRIMARY CARE, [Primary Care Provider] - 3-5 Days Time of Disposition: 01:09
[2019-02-08 01:10] VITALS: BP 103/63
== END 2019-02-08 01:15 | disposition home or self-care (01) ==
LOC: ED 22:07
DX: N76.0 Acute vaginitis (principal); B96.89 Other specified bacterial agents as the cause of diseases classified elsewhere; Z79.899 Other long term (current) drug therapy; Z79.1 Long term (current) use of non-steroidal anti-inflammatories (NSAID)
CPT/HCPCS: 81001; 81025; 87210; 87591; 99284